=== PATIENT | female | born 1980 | race Caucasian/White ===

== ENCOUNTER 2019-01-01 10:41 | Emergency (ER) | payer SELFPAY ==
[2019-01-01 10:53] VITALS: BP 119/58; PULSE 55; TEMP 98.1
--- NOTE | 2019-01-01 11:42 | PDOC ---
History of Present Illness - General Chief Complaint: Pain Stated Complaint: PAIN Time Seen by Provider: 01/01/19 11:07 History Source: Patient Exam Limitations: No Limitations - History of Present Illness Initial Comments: 01/01/19 patient came to emergency department with complaints of left-sided head pain, with wraparound scalp tenderness, and upper shoulder pain. 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 Has taken ibuprofen with some resolved. Denies numbness or tingling to hand, denies fevers earache sore throat pain. States tried to massage her shoulder which only exacerbated her neck stress/spasm worse. Occurred: reports: just prior to arrival Severity: reports: moderate Pain Location: reports: back, neck Method of Injury: Yes: unknown. No: direct blow, fall Modifying Factors: improves with: None Loss of Consciousness: no loss of consciousness Associated Symptoms (Fall): headache, lightheadedness, muscle spasms, neck pain Past History - Travel Traveled outside of the country in the last 30 days: No Close contact w/someone who was outside of country & ill: No - Past Medical History Allergies/Adverse Reactions: Allergies Allergy/AdvReac Type Severity Reaction Status Date / Time Penicillins Allergy Severe Swelling Verified 01/01/19 10:47 Home Medications: Ambulatory Orders Cyclobenzaprine HCl 10 mg PO Q8H PRN #14 tablet 01/01/19 Anemia: No Asthma: No Cancer: No Cardiac Disorders: No CVA: No COPD: No CHF: No Dementia: No Diabetes: No GI Disorders: No Disorders: No HTN: No Hypercholesterolemia: No Liver Disease: No Seizures: No Thyroid Disease: No - Surgical History Abdominal Surgery: No Appendectomy: No Cardiac Surgery: No Cholecystectomy: No Lung Surgery: No Neurologic Surgery: No Orthopedic Surgery: No - Suicide/Smoking/Psychosocial Hx Smoking History: Never smoked Have you smoked in the past 12 months: No Information on smoking cessation initiated: No Hx Alcohol Use: Yes (socially) Drug/Substance Use Hx: No Substance Use Type: None Hx Substance Use Treatment: No Review of Systems - Review of Systems Able to Perform ROS?: Yes Is the patient limited Trinidadian proficient: Yes Constitutional: Yes: Symptoms Reported, See HPI, Fever, Malaise HEENTM: Yes: See HPI. No: Symptoms Reported Respiratory: Yes: See HPI. No: Cough ABD/GI: No: Symptoms Reported Musculoskeletal: Yes: Symptoms Reported, See HPI, Neck Pain Integumentary: No: Symptoms Reported Neurological: Yes: Symptoms reported, See HPI, Headache All Other Systems: Reviewed and Negative *Physical Exam - Vital Signs Last Vital Signs Temp Pulse Resp BP Pulse Ox 98.1 F 55 L 14 119/58 L 98 01/01/19 10:48 01/01/19 10:48 01/01/19 10:48 01/01/19 10:48 01/01/19 10:48 - Physical Exam General Appearance: Yes: Nourished, Appropriately Dressed, Apparent Distress, Mild Distress HEENT: positive: LUIS MIGUEL, Normal ENT Inspection, TMs Normal, Pharynx Normal, Nasal Congestion, Rhinorrhea Neck: positive: Tender, Supple (tender tight musculature worse on the left than the right, headache reproduced with pressure on occiput to the left sternocleidomastoid insertion) Respiratory/Chest: positive: Lungs Clear, Normal Breath Sounds Gastrointestinal/Abdominal: positive: Soft. negative: Tender Musculoskeletal: positive: Muscle Spasm (palpable spasm in reproduce tenderness with point tenderness at occiput of left sternocleidomastoid. This pressure reproduces headache pain patient reports and brought her to emergency department. Has palpable spasm along the sternocleidomastoid belly and upper trapezius muscle. 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 We'll treat with NSAIDs and cyclobenzaprine and have follow-up with PMD as needed *DC/Admit/Observation/Transfer Diagnosis at time of Disposition: Tension headache - Discharge Dispostion Disposition: HOME Condition at time of disposition: Stable Decision to Admit order: No - Prescriptions Prescriptions: Cyclobenzaprine HCl 10 mg PO Q8H PRN #14 tablet PRN Reason: spasm - Referrals Referrals: Portia Gautam [Primary Care Provider] - - Patient Instructions Printed Discharge Instructions: DI for Hormonal and Tension Headaches Additional Instructions: Rest, no heavy lifting or exercise until pain is resolved Hot soaks to neck and low back as often as possible/hot showers or Jacuzzis No massage or therapy until spasm is gone Continue ibuprofen 2200 milligrams tablets every 6 hours for the next 3 days then as needed for pain and swelling Cyclobenzaprine 1-10mg every 8 hours as needed for spasm If not significant improvement within 24 hours with medication and rest regime, followup with private physician for change in medications and /or therapy. - Post Discharge Activity Forms/Work/School Notes: Back to Work
== END 2019-01-01 11:59 | disposition home or self-care (01) ==
LOC: JERFT 10:41
DX: G44.209 Tension-type headache, unspecified, not intractable (principal)
CPT/HCPCS: 99281-25

== ENCOUNTER 2019-06-02 09:12 | Day surgery (SDC) | payer OTHER ==
[2019-06-01 08:01] VITALS: BMI 28.8
[2019-06-02] MEDS ORDERED: LIDOCAINE HCL 1%, 10 MG/ML (20ML VIAL) ONE (10:44)
[2019-06-02] MEDS ORDERED: MIDAZOLAM HCL 2 MG/2 ML SINGLE DOSE VIAL ONE (11:13)
[2019-06-02] MEDS ORDERED: PROPOFOL 20 ML ONE (11:13)
[2019-06-02] MEDS ORDERED: LIDOCAINE HCL 1%, 10 MG/ML (20ML VIAL) NR ONE ×2 (11:47)
[2019-06-02] MEDS ORDERED: KETOROLAC TROMETHAMINE 30 MG/1 ML VIAL ONE (11:50)
[2019-06-02] MEDS ORDERED: DEXAMETHASONE SOD PHOSPHATE 4 MG/1 ML VIAL ONE (11:50)
--- NOTE | 2019-06-02 12:10 | HP ---
History & Physical Update - History History: No Change - Physical Physical: No Change - Assessment Assessment: No Change - Plan Plan: No Change
[2019-06-02] MEDS ORDERED: ONDANSETRON 4 MG/2 ML VIAL IVPUSH PRN (12:16)
[2019-06-02] MEDS ORDERED: oxyCODONE HCL 5 MG TABLET PO PRN (12:16)
[2019-06-02] MEDS ORDERED: LACTATED RINGERS SOLUTION 1,000 ML IV SCH (12:30)
[2019-06-02 12:46] VITALS: TEMP 97.8
[2019-06-02 14:40] VITALS: BP 121/68; PULSE 60
--- NOTE | 2019-06-03 10:09 | OP ---
DATE OF OPERATION: 06/02/2019 PREOPERATIVE DIAGNOSES: Right breast mass, right breast intraductal papilloma. POSTOPERATIVE DIAGNOSES: Right breast mass, right breast intraductal papilloma. PROCEDURE: Excision of right breast mass. SURGEON: Kim Brown MD ANESTHESIA: General. ESTIMATED BLOOD LOSS: Minimal. COMPLICATIONS: None. DISPOSITION: Stable at the end of the procedure. INDICATION FOR PROCEDURE: Patient presented with a palpable mass in her right breast 7 o'clock retroareolar location, and a needle biopsy showed an intraductal papilloma. My recommendation was an excision. The procedure was discussed with her. All of her questions answered. PROCEDURE IN DETAIL: Patient was brought to [facility] in [address], taken into the operating room, and after induction of general anesthesia, the right breast was prepped and draped in usual sterile fashion. The area in the lower outer right breast was anesthetized with 1% lidocaine. A periareolar incision was made in the lower outer right breast. At time of excision, there was a slightly blue-tinged mass superficially, that was removed as well, as well as the palpable mass which was the intraductal papilloma adjacent to nipple. Both of these were sent as right breast mass. There was no other palpable abnormality within the excisional cavity. Hemostasis was assured with electrocautery, and once hemostasis was assured, the incision was closed in routine fashion with interrupted 0 Vicryl and running 4-0 Prolene. A sterile dressing with Tegaderm and 4 x 4's applied. She tolerated the procedure well, was taken to recovery in good condition. Judith [id number]
--- NOTE | 2019-06-04 15:04 | PATH ---
Surgical Pathology Report Patient Name: SANDRO PIERCE [facility]. Rec. #: [id number] /Age/Gender: 1980 (Age: 38) / F Account: [id number] Location: [facility] SURGICAL Taken: 06/02/2019 Received: 06/02/2019 Reported: 06/04/2019 Physicians: Kim Brown M.D. Specimen(s) Received RIGHT BREAST MASS Clinical History Breast mass Final Diagnosis BREAST, RIGHT, MASS, EXCISION: SCLEROSED INTRADUCTAL PAPILLOMA. REMAINING BREAST PARENCHYMA WITH FIBROCYSTIC CHANGES INCLUDING STROMAL FIBROSIS, MICROCYSTS, AND CYSTIC APOCRINE METAPLASIA. Electronically Signed Holly Woodruff M.D. Gross Description Received in formalin labeled "right breast mass" are 2 irregular fragments of yellow fibroadipose tissue weighing 1 g, and measuring 1.5 x 1 x 0.5 and 1 x 0.5 x 0.5 cm. The specimen is undesignated. The entire outer surface is inked in black. Specimen is serially sectioned. Cut sections shows the largest fragment have a white, firm, homogenous surface extending to inked surgical margins. The smaller fragment is fatty and unremarkable. Entire specimen is submitted in 3 cassettes as follows: 1- smaller fragment, 2-3- Larger fragment. MLSZ/06/02/2019 san/06/02/2019
== END 2019-06-02 14:43 | disposition home or self-care (01) ==
LOC: JASU-SURG 09:12
PROVIDERS: ATTEND Surgery
PROC: 0HBT0ZX Excision of Right Breast, Open Approach, Diagnostic (ICD-10-PCS; principal; 2019-06-02 11:00)
DX: D24.1 Benign neoplasm of right breast (principal); N60.11 Diffuse cystic mastopathy of right breast; N60.31 Fibrosclerosis of right breast
CPT/HCPCS: 84703; 88307-TC; 94760